=== PATIENT | male | born 1985 | race African-American/Black ===

== ENCOUNTER → 2021-04-08 | Outpatient (CLI) | payer BC ==
--- NOTE | 2021-04-08 12:07 | REP ---
INDICATION: M54.5 LOW BACK PAIN. COMPARISON: None. TECHNIQUE: Five views lumbosacral spine. FINDINGS: The lateral views limited as it is somewhat oblique. There is no evidence for compression fracture or malalignment. There is mild degenerative change at the L1-2 level, with mild disc space narrowing, subchondral sclerosis and spurring. There may be mild narrowing of the L4-5 and L5-S1 disc spaces, but again the lateral view is limited in the evaluation of these regions. The posterior elements appear intact. IMPRESSION: Limited lateral views. No evidence of fracture or dislocation. <Electronically signed by Amilcar Majano > 04/08/21 1130
== END ==
LOC: M WUC 11:32
PROVIDERS: ATTEND Physician Assistant
DX: M54.5 Low back pain (principal)

== ENCOUNTER 2021-10-22 12:18 | Emergency (ER) | payer BC, OTHER ==
[~2021-10-22] VITALS: Ht 180.3 cm; Wt 113.6 kg
[2021-10-22] MEDS ORDERED: LIDOCAINE 2% MDV 20ML VIAL SC ONE (14:05)
[2021-10-22] MEDS ORDERED: CEPH500C PO (14:55)
[2021-10-22] MEDS ORDERED: CEPHALEXIN 500 MG CAP PO ONE (14:55)
[2021-10-22] MEDS ORDERED: NEOSPORIN OINT 0.9 GM PKT TOP ONE (14:55)
[2021-10-22 15:00] VITALS: BP 131/91
== END 2021-10-22 15:17 | disposition home or self-care (01) ==
LOC: M ED 12:18
DX: S61.011A Laceration without foreign body of right thumb without damage to nail, initial encounter (principal); W26.8XXA Contact with other sharp object(s), not elsewhere classified, initial encounter; Y92.009 Unspecified place in unspecified non-institutional (private) residence as the place of occurrence of the external cause; Y93.9 Activity, unspecified; Y99.9 Unspecified external cause status